=== PATIENT | female | born 1970 | race African-American/Black ===

== ENCOUNTER 2017-03-06 12:34 | Emergency (ER) | payer OTHER ==
[~2017-03-06] VITALS: Ht 167.6 cm; Wt 75.0 kg
[2017-03-06 12:38] VITALS: Ht 167.6 cm; Wt 75.0 kg
[2017-03-06 14:12] LABS: ADD UMIC YES; URINE BILIRUBIN (Dip) NEGATIVE (NEGATIVE); URINE BLOOD (Dip) 2+ (NEGATIVE); URINE COLOR LT. YELLOW (YELLOW); URINE GLUCOSE (Dip) NEGATIVE (NEGATIVE); URINE KETONES (Dip) NEGATIVE (NEGATIVE); URINE LEUKOCYTE ESTERASE (Dip) 2+ (NEGATIVE); URINE NITRITE (Dip) NEGATIVE (NEGATIVE); URINE TOTAL PROTEIN (Dip) TRACE (NEGATIVE); URINE UROBILINOGEN (Dip) 0.2 E.U./dL (0.1-1.0)
[2017-03-06 14:23] LABS: BACTERIA,URINE MODERATE
[2017-03-06] MEDS ORDERED: PHENAZOPYRIDINE 100 MG TAB PO STA (14:42)
[2017-03-06] MEDS ORDERED: LIDOCAINE 1% (MDV) 20 ML INJ SC STA (14:42)
[2017-03-06] MEDS ORDERED: CEFTRIAXONE 1 GM INJ IM ONE (15:00)
--- NOTE | 2017-03-06 15:22 | RADRPT ---
PROCEDURE: US Pelvis. CLINICAL INDICATION: Pelvic pain TECHNIQUE: Multiple sonographic images of the pelvis were obtained utilizing a transabdominal and endovaginal technique. The images were reviewed on a PACS workstation. COMPARISON: None. FINDINGS: The uterus is visualized and measures 8.9 x 4.9 x 5.6 cm. The endometrial echo complex measures 15 m m thickness. A large number of clustered, simple appearing cysts are seen in the cervix. The larges t measures up to approximately 1.4 cm. The right ovary measures 2.7 x 1.8 x 2.3 cm . The left ovary measures 3.0 x 1.8 x 2.4 cm. A few fo llicles are seen on the left ovaries. The ovaries demonstrate normal vascularity.. Trace free fluid is seen in the right adnexa. IMPRESSION: Large number of clustered, simple appearing cysts in the cervix, measuring up to 1.4 cm. A cystic ce rvical lesion or mass such as adenocarcinoma, tunnel cluster or endocervical hyperplasia is not excl uded. Correlation with physical exam is recommended. Further characterization with MRI should also be considered. Trace, nonspecific free fluid in the right adnexa. This could be physiologic. If further characterization of the organs of the pelvis is needed MRI should be considered. RPTAT: AA .Darrick Katz MD, Date Time Electronically viewed and signed by .Darrick Katz MD, MD on 03/06/2017 15:22 .P/
[2017-03-06] MEDS ORDERED: PHEN-538 PO (15:42)
[2017-03-06] MEDS ORDERED: CEPH500C PO (15:42)
--- NOTE | 2017-03-06 15:54 | ERD ---
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 Patient is complaining of painful urination and cramping for the past couple days rating it 5 out of 10. Patient denies any fever or flank pain. She admits to having hematuria. Patient states that her last menstrual period was February 08, 2017, patient states that her periods are regular however they are heavy and lasting 7 days. Patient's past abdominal surgeries include a hernia repair. Patient has not tried any medication ROS All systems reviewed and are negative except as per history of present illness. Medications Home Meds Active Scripts Phenazopyridine Hcl* (Pyridium*) 200 Mg Tab, 200 MG PO TID, #10 TAB Prov:DONELL LEA PA-C 03/06/17 Cephalexin* (Cephalexin*) 500 Mg Capsule, 500 MG PO BID, #14 CAP Prov:DONELL LEA PA-C 03/06/17 Allergies Allergies: Coded Allergies: No Known Drug Allergy (Verified Allergy, Unknown, 03/06/17) PMhx/Soc History of Surgery: Yes (hernia) Hx Miscellaneous Medical Probl: Yes (HTN, deaf from childhood rubella) Hx Alcohol Use: No Hx Substance Use: No Hx Tobacco Use: No Smoking Status: Never smoker Physical Exam Vitals Vital Signs Date Time Temp Pulse Resp B/P Pulse Ox O2 Delivery O2 Flow Rate FiO2 03/06/17 12:38 98.3 100 18 176/99 99 Physical Exam GENERAL: well-developed/well-nourished, in no apparent distress, non-toxic appearing HENT: NC/AT, moist mucous membranes EYES: Conjunctiva normal NECK: Supple, no lymphadenopathy PULM: CTA bilaterally, no rales, rhonchi, or wheezing heard CV: Normal S1S2, RRR, good capillary refill GI: Soft, non-distended, non-tender to palpation Normal bowel sounds, no masses or organomegaly felt on exam No gross peritonitis, no bruits Negative Rovsing, negative Infante, negative McBurney's point, Negative CVAT : patient refused pelvic exam BACK: No masses EXT: No clubbing, cyanosis, or edema NEURO: Alert and Orientated SKIN: Intact, normal turgor PSYCH: Normal mood and mentation Results 24 hrs Laboratory Tests Test 03/06/17 13:50 Urine Color LT. YELLOW Urine Clarity CLEAR Urine pH 6.0 Urine Specific Jenera 1.020 Urine Ketones NEGATIVE Urine Nitrite NEGATIVE Urine Bilirubin NEGATIVE Urine Urobilinogen 0.2 E.U./dL Urine Leukocyte Esterase 2+ Urine Microscopic RBC 10-25/HPF Urine Microscopic WBC >50/HPF Urine Epithelial Cells MODERATE Urine Bacteria MODERATE Urine Hemoglobin 2+ Urine Glucose NEGATIVE% Urine Total Protein TRACE Current Medications Medications (Trade) Dose Ordered Sig/Donnell Route PRN Reason Start Time Stop Time Status Last Admin Dose Admin Ceftriaxone Sodium (Rocephin) 1 gm ONCE ONCE IM 03/06/17 15:00 03/06/17 15:01 DC 03/06/17 15:17 Lidocaine (Xylocaine 1% (Mdv) 20 ml) 20 ml ONCE STAT SC 03/06/17 14:42 03/06/17 14:44 DC 03/06/17 15:17 Phenazopyridine HCl (Pyridium) 200 mg ONCE STAT PO 03/06/17 14:42 03/06/17 14:44 DC 03/06/17 15:17 Procedures/MDM This is a 46-year-old female who 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 Patient is complaining of painful urination, pelvic cramping, and mild hematuria. LMP: February 08, 2017, patient states that her periods are regular however they are heavy and lasting 7 days. Patient likely has a urinary tract infection, without any evidence of pyelonephritis, nephrolithiasis. In addition patient was found to have a cluster of cervical cyst, differentials include but not limited to adenocarcinoma, cervical cluster versus other. A urinalysis was done in the ED and patient was positive for urinary tract infection. Urine test was negative. An ultrasound of the pelvis was done and radiologist stated: Large number of clustered, simple appearing cysts in the cervix, measuring up to 1.4 cm. A cystic cervical lesion or mass such as adenocarcinoma, tunnel cluster or endocervical hyperplasia is not excluded. Correlation with physical exam is recommended. Further characterization with MRI should also be considered. Trace, nonspecific free fluid in the right adnexa. This could be physiologic. If further characterization of the organs of the pelvis is needed MRI should be considered. I have discussed these findings with the patient, I have discussed that the best suitable decision is to follow-up with an [facility] tomorrow for further evaluation and management to rule out a malignant mass. Patient was given ceftriaxone 1gram IM and Toradol in the ED and a prescription for Keflex and Pyridium as an outpatient. I have given her all the diagnostic testing. I have discussed with patient to return to the emergency room for any worsening signs or symptoms. Patient is hemodynamically stable for discharge and she understands and agrees with this plan Departure Diagnosis: Primary Impression: Pelvic pain Additional Impressions: Cervical cyst UTI (urinary tract infection) Condition: Fair Patient Instructions: Understanding Urinary Tract Infections (UTIs), Understanding Changes in Your Cervix, Cancer of the Cervix Referrals: [facility] [place] [id number] [facility] [address] [place] [address]ABUSLEME JOSSELYN [address] [place] [address] [address] [facility] [address] [place] [address] [address] [facility] [address] [facility], [address], [facility] [address] [address] [address] [place] [address] [facility] [address] [place] [address] [address] [facility] [address] - [address] [facility] [address] [address] RIZZO, JO[place]PH [address] [facility] [address], [facility] [address] [address] [address] [place] [address] Additional Instructions: FOLLOW UP WITH YOUR PRIMARY CARE PHYSICIAN TOMORROW.Return to this facility if you are not improving as expected. Take all medicines as directed. Return to this facility if you are not improving as expected. SPECIALIST: YOU HAVE A MEDICAL CONDITION WHICH REQUIRES YOU TO SEE A SPECIALIST WITHIN THE NEXT 1-2 DAYS. PLEASE FOLLOW UP WITH YOUR PRIMARY PHYSICIAN FOR REFFERAL.IF YOU DO NOT HAVE A PRIMARY CARE PHYSICIAN AND/OR YOU CAN NOT AFFORD TO SEE A PHYSICIAN THE FOLLOWING RESOURCES HAVE BEEN SUPPLIED TO YOU. IT IS YOUR RESPONSIBILITY TO BE SEEN BY THE SPECIALIST DONELL LEA PA-C Mar 06, 2017 15:54
[2017-03-06 16:10] VITALS: BP 154/98; PULSE 77; RESP 18; TEMP 98.3
== END 2017-03-06 15:55 | disposition home or self-care (01) ==
LOC: FTE 12:34
DX: R10.2 Pelvic and perineal pain (principal); N88.8 Other specified noninflammatory disorders of cervix uteri; N39.0 Urinary tract infection, site not specified; I10 Essential (primary) hypertension
CPT/HCPCS: 76830; 76856; 81001; 87086; 96372; J0696; Z7502; Z7610; 81003

== ENCOUNTER 2017-11-07 05:26 | Inpatient (IN) | END 2017-11-09 14:45 | disposition home or self-care (01) | DRG 743 ==